=== PATIENT | female | born 1955 | race Caucasian/White ===

== ENCOUNTER → 2016-12-16 16:34 | Outpatient (CLI) | payer MEDICARE ==
[2016-05-12 10:21] VITALS: BMI 37.7
[~2016-12-16 16:34] MED LIST: AMBIEN10 MG PO; CHILDREN'S ASPI81 MG PO; COZAAR50 MG PO; CRESTOR10 MG PO; CYMBALTA30 MG PO; DESERYL100 MG PO; FLAGYL500 MG PO; GLUCOTROL 5 MG T5 MG PO; GLUCOTROL XL 5 M5 MG PO; HYDROCODONE-APA1 TAB PO; IBUPROFEN800 MG PO; K-DUR20 MEQ PO; LASIX40 MG PO; LOPRESSOR25 MG PO; LOPRESSOR50 MG PO; MOTRIN800 MG PO; NEXIUM40 MG PO; NORCO 10/325 TA1 TA1 PO; OXYBUTYNIN CHLOR5 MG PO; PAMELOR10 MG PO; PEPCID40 MG PO; PLAVIX75 MG PO; PRAVACHOL40 MG PO; TOPAMAX100 MG PO; ULTRAM50 MG PO; VANCOCIN HCL250 MG PO; VENTOLIN HFA18 GM INH; ZESTRIL10 MG PO
== END | disposition home or self-care (01) ==
LOC: D.MAMMO 14:30
DX: Z12.31 Encounter for screening mammogram for malignant neoplasm of breast (principal)

== ENCOUNTER → 2017-12-18 13:06 | Outpatient (CLI) | payer MEDICARE ==
[2016-05-12 10:21] VITALS: BMI 37.7
[~2017-12-18 13:06] MED LIST changes: +DILAUDID2 MG PO; +LAMISIL250 MG PO
== END | disposition home or self-care (01) ==
LOC: D.LABREF 13:06
DX: B35.1 Tinea unguium (principal)

== ENCOUNTER → 2017-12-19 08:59 | Outpatient (CLI) | payer MEDICARE ==
[2016-05-12 10:21] VITALS: BMI 37.7
[2017-12-19 09:47] LABS: BASOPHILS 0.3 % (0-2); HEMATOCRIT 40.6 % (36.0-48.0); HEMOGLOBIN 12.6 g/dL (12-16); IMMATURE GRANULOCYTES 0.1 % (0-5); LYMPHOCYTES 25.4 % (15-50); MCH 29.4 pg (26.0-34.0); MCV 94.9 fL (80.0-100.0); MEAN PLATELET VOLUME 11.5 fL (7.4-10.4); MONOCYTES 5.5 % (2-11); NEUTROPHILS 66.7 % (40-80); PLATELET COUNT 212 10x3/uL (130-400); RBC 4.28 10x6/uL (4.00-5.40); RDW 15.4 % (11.5-14.5)
[2017-12-19 10:27] LABS: ALBUMIN 3.3 g/dL (3.4-5.0); ANION GAP 16.1 mmol/L (8-16); BILIRUBIN - TOTAL 0.23 mg/dL (0.2-1.3); CALCIUM 8.1 mg/dL (8.5-10.1); CARBON DIOXIDE 25.3 mmol/L (21.0-32.0); POTASSIUM - SERUM 4.4 mmol/L (3.5-5.1); PROTEIN - SERUM 6.6 g/dL (6.4-8.2)
== END | disposition home or self-care (01) ==
LOC: D.LABREF 08:59
PROVIDERS: Orthopaedic Surgery
DX: B35.1 Tinea unguium (principal)

== ENCOUNTER 2018-01-15 10:00 | Day surgery (SDC) | payer MEDICARE ==
[2018-01-12 09:37] LABS: BASOPHILS 0.3 % (0-2); EOSINOPHILS 2.2 % (0-7); HEMATOCRIT 39.4 % (36.0-48.0); HEMOGLOBIN 12.7 g/dL (12-16); IMMATURE GRANULOCYTES 0.3 % (0-5); LYMPHOCYTES 24.6 % (15-50); MCH 29.4 pg (26.0-34.0); MCHC 32.2 g/dL (31.0-37.0); MCV 91.2 fL (80.0-100.0); MEAN PLATELET VOLUME 10.4 fL (7.4-10.4); MONOCYTES 8.7 % (2-11); NEUTROPHILS 63.9 % (40-80); PLATELET COUNT 192 10x3/uL (130-400); RBC 4.32 10x6/uL (4.00-5.40); RDW 14.6 % (11.5-14.5); WBC 7.3 10x3/uL (4.8-10.8)
[2018-01-12 09:51] LABS: INR 1.01 (0.85-1.17); PROTIME 12.9 SECONDS (11.6-15.0)
[2018-01-12 09:58] LABS: ANION GAP 9.7 mmol/L (8-16); CALCIUM 7.4 mg/dL (8.5-10.1); CARBON DIOXIDE 27.9 mmol/L (21.0-32.0); CREATININE - SERUM 0.9 mg/dL (0.6-1.3); POTASSIUM - SERUM 3.6 mmol/L (3.5-5.1)
[~2018-01-15] VITALS: Ht 170.2 cm; Wt 95.3 kg
--- NOTE | ~2018-01-15 | OP ---
PATIENT NAME: EAN ACUÑA MEDICAL RECORD: [id number] LOCATION:D.OPS ADMISSION DATE: SURGEON: DMITRY ADAME MD DATE OF OPERATION: 01/15/2018 PREOPERATIVE DIAGNOSES: 1. Painful onychomycosis. 2. Ingrown thumbnail, right thumb. POSTOPERATIVE DIAGNOSES: 1. Painful onychomycosis. 2. Ingrown thumbnail, right thumb. PROCEDURE: Excision of right thumbnail. SURGEON: Dmitry Adame MD ANESTHESIA: General. INTRAOPERATIVE COMPLICATIONS: None. SUMMARY OF PATHOLOGIC FINDINGS: The patient's medial and lateral aspect of the thumb had grown deeply and embedded into the dorsal aspect of the distal phalanx. Upon removal, no purulence was noted; however, the thumb did indeed have substantial onychomycosis along with the ingrowing noted. OPERATIVE SUMMARY IN DETAIL: After obtaining the appropriate preoperative orthopedic surgery consent as well as anesthetic consultation, evaluation, and clearance, the patient was brought to the operating room and placed on the operating table in supine position. After adequate general laryngeal mask airway was administered, tourniquet was placed on the proximal aspect of the right upper extremity. Note, it was not used during this case. Right upper extremity was then prepped and draped in routine sterile fashion. Prior to proceeding, a thumb block was done with half and half lidocaine and Marcaine without epinephrine. Then, the thumbnail was removed using a Mosquito. The thumbnail was removed in its entirety including the germinal matrix part of the nail as well as the sterile matrix part of the nail. All portions of the nail was removed. The thumb base was irrigated and then sterile dressings were applied. The patient was awakened and taken to the recovery room in stable condition. All final needle and sponge counts were correct. TRANSINT:[id number] Voice Confirmation ID: [id number] DOCUMENT ID: [id number] DMITRY ADAME MD at 1358 CC: [id number] DICTATION DATE: 01/16/18 0904 [facility]: 01/16/18 1155 [facility] 01/15/18 [place] [id number]
[~2018-01-15 10:00] MED LIST changes: -DILAUDID2 MG PO
[2018-01-15 11:47] VITALS: BP 151/87; Ht 170.2 cm; Wt 95.3 kg
[2018-01-15] MEDS ORDERED: DILAUDID2 MG PO (14:14)
== END 2018-01-15 16:15 | disposition home or self-care (01) ==
LOC: D.OPS 10:00 → D.PAN 12:30 → D.OPS 16:15
PROVIDERS: Anesthesiology
DX: B35.1 Tinea unguium (principal); L60.0 Ingrowing nail; Z01.812 Encounter for preprocedural laboratory examination

== ENCOUNTER → 2018-09-10 15:55 | Outpatient (CLI) | payer MEDICARE ==
[2018-01-15 11:47] VITALS: BMI 32.9
[~2018-09-10 15:55] MED LIST changes: +DILAUDID2 MG PO
[2018-09-13 19:07] LABS: OVA + PARASITE EXAM Final report (())
== END | disposition home or self-care (01) ==
LOC: D.LAB 15:55
PROVIDERS: ATTEND Family Medicine Adult Medicine
DX: R19.7 Diarrhea, unspecified (principal)

== ENCOUNTER 2018-11-02 08:00 | Outpatient (CLI) | payer MEDICARE ==
[2018-01-15 11:47] VITALS: BMI 32.9
== END 2018-11-02 23:59 | disposition home or self-care (01) ==
LOC: D.MAMMO 08:00
PROVIDERS: ATTEND Emergency Medicine
DX: Z12.31 Encounter for screening mammogram for malignant neoplasm of breast (principal)